=== PATIENT | female | born 1985 | race African-American/Black ===

== ENCOUNTER 2017-06-27 14:38 | Emergency (ER) | payer OTHER ==
[~2017-06-27 14:38] MED LIST: CLIN150 PO; CYCL-36 PO; DICL50 PO; HYDR10SO PO; IBUP-232 PO
[2017-06-27 14:48] VITALS: BP 151/74; PULSE 97; RESP 20; TEMP 99.1; O2SAT 100
--- NOTE | 2017-06-27 15:44 | PD ---
HPI Chief Complaint: Headache Time Seen by Provider: 15:29 Travel History International Travel<30 days: No Contact w/Intl Traveler<30days: No Traveled to known affect area: No History of Present Illness HPI 31-year-old female presents to emergency department with complaint of a headache and feeling of numbness to her left side of her face since this morning at approximately 8 AM. The numbness to her face comes and goes. Her headache has been constant. Her headache "just came on." She has history of headaches, "but not like this." Denies focal deficits or weakness. Denies confusion, disorientation, change in mentation, slurred speech. Denies phonophobia, photophobia, blurred vision, change in vision. Denies lightheadedness, dizziness. Reports vomiting once at approximately 12 PM. Denies head trauma. Headache is right frontal, temporal. Rates pain 8/10. Describes as throbbing and pumping. No known aggravating or relieving factors. Has tried taking ibuprofen for symptom management with no relief. No primary care provider. No known allergies. Denies significant past medical history. Has no other medical complaints. No other modifying factors or associated signs and symptoms. PFSH Past Medical History Medical History: Denies Significant Hx Blood Disorders: No Cancer: No Cardiovascular Problems: No Chemotherapy: No Diminished Hearing: No Endocrine: No Gastrointestinal Disorders: No Genitourinary: No Immune Disorder: No Musculoskeletal: No Neurologic: No Psychiatric: No Respiratory: No Immunizations Current: Yes Radiation Therapy: No Tetanus Vaccination: < 5 Years ?: Not : 2 Para: 2 Past Surgical History Section: Yes (X2) Gynecologic Surgery: Yes () Oral Surgery: Yes Social History Alcohol Use: No Tobacco Use: No Substance Use: No Allergies-Medications (Allergen,Severity, Reaction): Coded Allergies: No Known Allergies (Verified Adverse Reaction, Unknown, 06/27/17) Reported Meds & Prescriptions Reported Meds & Active Scripts Active Review of Systems Except as stated in HPI: all other systems reviewed are Neg Physical Exam Narrative GENERAL: Well-nourished, well-developed black female patient, in no acute distress SKIN: Warm and dry. Right zoroastrianism area without noted rash, swelling, reproducible tenderness on palpation. HEAD: Atraumatic. Normocephalic. No facial droop noted. Tongue midline. Shoulder shrug equal. Finger to nose test normal. EYES: Pupils equal and round at 3 mm with brisk reaction. No scleral icterus. No injection or drainage. PERRLA. EOMI. ENT: Mucosa pink and moist. Airway patent. NECK: Trachea midline. No lymphadenopathy. CARDIOVASCULAR: Regular rate. RESPIRATORY: No accessory muscle use. GASTROINTESTINAL: Rounded MUSCULOSKELETAL: No obvious deformities. No clubbing. No cyanosis. No edema. NEUROLOGICAL: Awake and alert. Oriented 4. No obvious cranial nerve deficits. Motor grossly within normal limits. Normal speech. No ataxia. No mid -line drift. No upper or lower extremity drift. 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 Sensory intact; reports different sensation in left side of face on palpation. Moves all extremities. Active plantar and dorsiflexion and strength equal bilaterally. 5/5 strength to all extremities. PSYCHIATRIC: Appropriate mood and affect; insight and judgment normal. Data Data Last Documented VS Vital Signs Date Time Temp Pulse Resp B/P (MAP) Pulse Ox O2 Delivery O2 Flow Rate FiO2 06/27/17 14:48 99.1 97 20 151/74 (99) 100 Orders Orders Iv Access Insert/Monitor (06/27/17 15:45) Prochlorperazine Inj (Compazine Inj) (06/27/17 15:45) Diphenhydramine Inj (Benadryl Inj) (06/27/17 15:45) Ct Brain W/O Iv Contrast(Rout) (06/27/17 ) Sodium Chlor 0.9% 1000 Ml Inj (Ns 1000 M (06/27/17 15:45) Ed Urine Pregnancytest Poc (06/27/17 15:56) Ketorolac Inj (Toradol Inj) (06/27/17 16:45) MDM Medical Decision Making Medical Screen Exam Complete: Yes Emergency Medical Condition: Yes Medical Record Reviewed: Yes Differential Diagnosis Acute headache, temporal arteritis, facial paresthesias, trigeminal neuralgia Narrative Course 31-year-old female with right-sided frontal/temporal headache that started this morning approximately 8 AM. Neuro exam is unremarkable. CT head, UPT, IV, IV fluids, Compazine, Benadryl ordered. 1642: CT head conclude: Head CT 06/27/17 0000 Signed Impressions: Service Date/Time: Tuesday, June 27, 2017 16:18 - CONCLUSION: No acute disease. Adriano Duque MD FACR Discussed CT findings with the patient. Toradol ordered. Patient reports improvement in headache prior to Toradol. Rates headache 05/29. Toradol will be administered and the patient will be discharged home. Ibuprofen prescribed for home. Instructed patient to follow up with primary care provider. Patient verbalizes understanding and agreement with treatment plan. Patient is medically cleared and stable for discharge. Discussed reasons to return to the emergency department. Patient agrees with treatment plan. The patients vital signs are stable and the patient is stable for outpatient follow-up and treatment. Patient discharged home, stable and in no acute distress. Diagnosis Primary Impression: Acute headache Qualified Codes: R51 - Headache Referrals: [facility] Primary Care Physician Patient Instructions: Acute Headache (ED), General Instructions Additional Instructions: Ibuprofen or Tylenol as directed and as needed to reduce headache Get plenty of rest: do not over sleep rest and relax in a dark, quiet room as needed Place an ice pack on the back of her neck to reduce head pain as needed Keep a headache diary of what triggers her headaches and what treatment is most effective Avoid identifiable triggers Avoid smoking, alcohol and caffeine consumption Reduce stress Follow-up with primary care provider within 1-2 days Follow-up with neurology as needed Return immediately to the emergency department with worsening symptoms Med/Other Pt SpecificInfo: Prescription(s) given Scripts Ibuprofen (Ibuprofen) 800 Mg Tab 800 MG PO Q6HR Y for PAIN, #30 TAB 0 Refills Prov: Karma Heath 06/27/17 Disposition: 01 DISCHARGE HOME Condition: Stable Karma Heath June 27, 2017 15:44
[2017-06-27] MEDS ORDERED: PROCHLORPERAZINE INJ 10 MG/2 ML VIAL IVP ONE (15:45)
[2017-06-27] MEDS ORDERED: diphenhydrAMINE HCL 50 MG/ML VIAL IVP ONE (15:45)
[2017-06-27] MEDS ORDERED: SODIUM CHLOR 0.9% 1000 ML INJ 1,000 ML IV ONE (15:45)
--- NOTE | 2017-06-27 16:34 | RADRPT ---
EXAM DATE/TIME: 06/27/2017 16:18 [facility] COMPARISON: No previous studies available for comparison. INDICATIONS : Cephalgia with numbness to right side of face. RADIATION DOSE: 38.73 CTDIvol (mGy) MEDICAL HISTORY : None SURGICAL HISTORY : None. ENCOUNTER: Initial ACUITY: 1 day PAIN SCALE: 4/10 LOCATION: cranial TECHNIQUE: Multiple contiguous axial images were obtained of the head. Using automated exposure control and adj ustment of the mA and/or kV according to patient size, radiation dose was kept as low as reasonably a chievable to obtain optimal diagnostic quality images. DICOM format image data is available electro nically for review and comparison. FINDINGS: CEREBRUM: The ventricles are normal for age. No evidence of midline shift, mass lesion, hemorrhage or acute in farction. No extra-axial fluid collections are seen. POSTERIOR FOSSA: The cerebellum and brainstem are intact. The 4th ventricle is midline. The cerebellopontine angle i s unremarkable. EXTRACRANIAL: The visualized portion of the orbits is intact. SKULL: The calvaria is intact. No evidence of skull fracture. CONCLUSION: No acute disease. Adriano Duque MD FACR on June 27, 2017 at 16:32 Board Certified Radiologist. This report was verified electronically.
[2017-06-27] MEDS ORDERED: KETOROLAC TROMETHAMINE 30 MG/ML (IVP) VIAL IV PUSH ONE (16:45)
[2017-06-27] MEDS ORDERED: IBUP1TAB7 PO (16:50)
== END 2017-06-27 17:04 | disposition home or self-care (01) ==
LOC: NEPD 14:38
DX: R51 Headache (principal); R20.0 Anesthesia of skin
CPT/HCPCS: 70450; 84703; 96361; 96374; 96375; 99284; J0780; J1200; J1885; J7030

== ENCOUNTER 2017-07-18 15:26 | Emergency (ER) | payer OTHER ==
[~2017-07-18] VITALS: Ht 167.6 cm; Wt 99.0 kg
[~2017-07-18 15:26] MED LIST changes: -CLIN150 PO; -CYCL-36 PO; -DICL50 PO; -HYDR10SO PO; -IBUP-232 PO; +IBUP1TAB7 PO
[2017-07-18 15:28] VITALS: BP 131/80; PULSE 94; RESP 16; TEMP 100.1; O2SAT 99
--- NOTE | 2017-07-18 16:25 | PD ---
HPI Chief Complaint: ENT Complaint Time Seen by Provider: 16:19 Travel History International Travel<30 days: No Contact w/Intl Traveler<30days: No Traveled to known affect area: No History of Present Illness HPI 31-year-old female for sore throat and fever 3 days. She is also reporting a gradual onset generalized headache which is mild in severity. No nausea or vomiting. No sick contacts or foreign travel. No difficulty swallowing. PFSH Past Medical History Medical History: Denies Significant Hx Blood Disorders: No Cancer: No Cardiovascular Problems: No Chemotherapy: No Diminished Hearing: No Endocrine: No Gastrointestinal Disorders: No Genitourinary: No Immune Disorder: No Musculoskeletal: No Neurologic: No Psychiatric: No Respiratory: No Immunizations Current: Yes Radiation Therapy: No Tetanus Vaccination: Unknown Influenza Vaccination: Yes ?: Not LMP: 06/08/17 : 2 Para: 2 Past Surgical History Section: Yes (X2) Gynecologic Surgery: Yes () Oral Surgery: Yes Social History Alcohol Use: No Tobacco Use: No Substance Use: No Allergies-Medications (Allergen,Severity, Reaction): Coded Allergies: No Known Allergies (Verified Adverse Reaction, Unknown, 07/18/17) Reported Meds & Prescriptions Reported Meds & Active Scripts Active Ibuprofen 800 Mg Tab 800 Mg PO Q6HR PRN Review of Systems Except as stated in HPI: all other systems reviewed are Neg General / Constitutional: Positive: Fever Eyes: No: Visual changes HENT: Positive: Sore Throat Cardiovascular: No: Chest Pain or Discomfort Respiratory: No: Shortness of Breath Gastrointestinal: No: Abdominal Pain Genitourinary: No: Dysuria Musculoskeletal: No: Pain Skin: No Rash Physical Exam Narrative GENERAL: Alert and well-appearing 31-year-old female SKIN: Warm and dry. No rash HEAD: Normocephalic. EYES: No injection or drainage. ENT: Pharyngeal erythema with mild tonsillar hypertrophy and scant exudate. Uvula is midline. Airways patent. Normal phonation. Mucous members are pink and moist NECK: Supple, trachea midline. Mild submandibular lymphadenopathy CARDIOVASCULAR: Regular rate and rhythm without murmurs, gallops, or rubs. RESPIRATORY: Breath sounds equal bilaterally. No accessory muscle use. GASTROINTESTINAL: Abdomen soft, non-tender, nondistended. Data Data Last Documented VS Vital Signs Date Time Temp Pulse Resp B/P (MAP) Pulse Ox O2 Delivery O2 Flow Rate FiO2 5/30/18 15:28 100.1 94 16 131/80 (97) 99 MDM Medical Decision Making Medical Screen Exam Complete: Yes Emergency Medical Condition: Yes Differential Diagnosis Strep pharyngitis, viral pharyngitis, mononucleosis Narrative Course 31-year-old female here with pharyngitis. She is nontoxic appearing. She will be treated with amoxicillin. Diagnosis Primary Impression: Pharyngitis Qualified Codes: J02.9 - Acute pharyngitis, unspecified Referrals: Primary Care Physician Departure Forms: Tests/Procedures, Work Release Enter return to work date: Jul 20, 2017 Additional Instructions: Antibiotics as directed. Tylenol and ibuprofen for fever and pain. Drink plenty fluids. Follow-up with your primary doctor. Scripts Amoxicillin (Amoxicillin) 500 Mg Tab 500 MG PO BID for Infection for 10 Days, #20 TAB 0 Refills Prov: Karen Renee 07/18/17 Disposition: 01 DISCHARGE HOME Condition: Stable Karen Renee July 18, 2017 16:25
[2017-07-18] MEDS ORDERED: AMOX500T PO (16:34)
== END 2017-07-18 16:38 | disposition home or self-care (01) ==
LOC: PHED 15:26 → PHEFT 16:38
DX: J02.9 Acute pharyngitis, unspecified (principal); R51 Headache
CPT/HCPCS: 99283